=== PATIENT | female | born 1955 | race Caucasian/White ===

== ENCOUNTER 2018-05-13 06:26 | Day surgery (SDC) | payer OTHER ==
[2018-05-13] MEDS ORDERED: MIDAZOLAM 1 MG/ML 2 ML INJ (08:37)
[2018-05-13] MEDS ORDERED: FENTAnyl 50 MCG/ML VIAL (08:37)
== END 2018-05-13 11:46 | disposition home or self-care (01) ==
LOC: GIL 06:26
DX: K29.50 Unspecified chronic gastritis without bleeding (principal); K21.0 Gastro-esophageal reflux disease with esophagitis; K44.9 Diaphragmatic hernia without obstruction or gangrene; F17.200 Nicotine dependence, unspecified, uncomplicated; Z79.82 Long term (current) use of aspirin
CPT/HCPCS: 43239; 88305; 88312

== ENCOUNTER 2019-02-04 08:51 | Day surgery (SDC) | payer OTHER ==
[2019-02-04] MEDS ORDERED: PROPOFOL 40 ML (10:09)
[2019-02-04] MEDS ORDERED: LIDOCAINE 2% (SDV) 5 ML INJ (10:09)
[2019-02-04] MEDS ORDERED: ONDANSETRON 4 MG INJ IV (10:30)
== END 2019-02-04 11:37 | disposition home or self-care (01) ==
LOC: GIL 08:51
DX: R19.4 Change in bowel habit (principal); K57.30 Diverticulosis of large intestine without perforation or abscess without bleeding
CPT/HCPCS: 45378

== ENCOUNTER 2019-06-12 06:53 | Day surgery (SDC) | payer OTHER ==
[2019-06-12] MEDS ORDERED: LIDOCAINE 4% SOLUTION 50 ML BTL (08:37)
[2019-06-12] MEDS ORDERED: FENTAnyl 50 MCG/ML VIAL (09:21)
[2019-06-12] MEDS ORDERED: MIDAZOLAM 1 MG/ML 2 ML INJ ×2 (09:21)
== END 2019-06-12 14:25 | disposition home or self-care (01) ==
LOC: GIL 06:53
DX: K29.50 Unspecified chronic gastritis without bleeding (principal)
CPT/HCPCS: 43239; 88305; 88312